=== PATIENT | male | born 1950 | race Caucasian/White ===

== ENCOUNTER 2018-08-26 09:47 | Emergency (ER) | payer MEDICARE ==
--- NOTE | 2018-08-26 10:37 | EDM.PDOC ---
ED HPI GENERAL MEDICAL PROBLEM - General Chief Complaint: Fever Stated Complaint: MEDICAL [facility]IA [facility] Time Seen by Provider: 08/26/18 10:10 Source of Information: Reports: Patient, EMS History Limitations: Reports: No Limitations - History of Present Illness INITIAL COMMENTS - FREE TEXT/NARRATIVE: 68-year-old male who is struggling with persistent weakness, intermittent fevers , who has been at the clinic twice this week and has been followed with labs and x-ray. His chest x-ray was normal, he had initial acute kidney injury levels last Wednesday but they were improved yesterday. He had a history of fevers but no fever in the clinic. His primary provider is following some abnormal thyroid levels, and also placed him on Zithromax for presumptive bronchitis. This morning he was running a fever and felt no better, possibly weaker so called EMS to be evaluated. He denies any pain. Denies any increased shortness of breath or cough. No nausea or vomiting. He arrives with a temperature of 102.1. Onset: Unknown/Unsure Associated Symptoms: Reports: Fever/Chills, Loss of Appetite, Malaise, Shortness of Breath (Chronic and stable), Weakness. Denies: Chest Pain, Cough Past Medical History Cardiovascular History: Reports: CAD Neurological History: Reports: CVA Endocrine/Metabolic History: Reports: Diabetes, Type II - Past Surgical History Cardiovascular Surgical History: Reports: Coronary Artery Bypass Social & Family History - Tobacco Use Smoking Status *Q: Never Smoker ED ROS GENERAL - Review of Systems Review Of Systems: See Below Constitutional: Reports: Fever, Chills, Malaise, Decreased Appetite HEENT: Denies: Throat Pain Respiratory: Reports: Shortness of Breath. Denies: Hemoptysis Cardiovascular: Denies: Chest Pain, Palpitations GI/Abdominal: Reports: Decreased Appetite. Denies: Abdominal Pain, Nausea, Vomiting : Reports: No Symptoms Neurological: Reports: Weakness. Denies: Headache Psychiatric: Reports: No Symptoms ED EXAM, GENERAL - Physical Exam Exam: See Below Exam Limited By: No Limitations General Appearance: Alert, No Apparent Distress Eye Exam: Bilateral Eye: EOMI (No jaundice) Throat/Mouth: Normal Inspection Head: Atraumatic Neck: Normal Inspection Respiratory/Chest: No Respiratory Distress, Lungs Clear Cardiovascular: Regular Rate, Rhythm. No: Tachycardia, Extra Beats GI/Abdominal: Soft, Non-Tender Neurological: Alert, Oriented Psychiatric: Normal Affect, Normal Mood Skin Exam: Warm, Dry Course - Vital Signs Last Recorded V/S: Last Vital Signs Temp 102.1 F H 08/26/18 10:09 Pulse 96 08/26/18 10:09 Resp 13 08/26/18 10:09 BP 136/70 08/26/18 10:09 Pulse Ox 92 L 08/26/18 10:09 - Orders/Labs/Meds Labs: Laboratory Tests 08/26/18 08/26/18 08/26/18 Range/Units 10:35 10:35 10:35 WBC 4.9 (4.5-11.0) K/uL RBC 4.00 L (4.30-5.90) M/uL Hgb 11.8 L (12.0-15.0) g/dL Hct 36.8 L (40.0-54.0) % MCV 92 (80-98) fL MCH 30 (27-31) pg MCHC 32 (32-36) % Plt Count 192 (150-400) K/uL Neut % (Auto) 65 (36-66) % Lymph % (Auto) 18 L (24-44) % [place] % (Auto) 16 H (2-6) % Eos % (Auto) 0 L (2-4) % Baso % (Auto) 1 (0-1) % Sodium 131 L (140-148) mmol/L Potassium 5.6 H (3.6-5.2) mmol/L Chloride 99 L (100-108) mmol/L Carbon Dioxide 23 (21-32) mmol/L Anion Gap 14.6 H (5.0-14.0) mmol/L BUN 36 H (7-18) mg/dL Creatinine 1.7 H (0.8-1.3) mg/dL Est Cr Clr Drug Dosing 39.68 mL/min Estimated GFR (MDRD) 40 L (>60) Glucose 229 H (74-106) mg/dL Calcium 8.6 (8.5-10.1) mg/dL Creatine Kinase 40 (39-308) U/L Meds: Medications Discontinued Medications Generic Name Dose Route Start Last Admin Trade Name Freq PRN Reason Stop Dose Admin Acetaminophen 1,000 mg 08/26/18 11:15 08/26/18 11:34 Tylenol Extra Strength PO 08/26/18 11:16 1,000 mg ONETIME ONE Administration - Re-Assessments/Exams Free Text/Narrative Re-Assessment/Exam: 08/26/18 10:37 Review of his clinic chart and discussed his case with his primary provider. CBC and BMP along with a CK were obtained. 08/26/18 11:15 Labs returned reassuring. White count is still normal and CK is normal. Patient was given 1000 mg of by mouth acetaminophen, and would like to try to go home and continue his oral antibiotic. He can follow-up with his primary care provider next week, or return anytime if he feels he is worsening despite treatment. Departure - Departure Time of Disposition: 12:42 Disposition: Home, Self-Care 01 Clinical Impression: Generalized weakness Fever Qualifiers: Fever type: unspecified Qualified Code(s): R50.9 - Fever, unspecified - Discharge Information Instructions: Fever, Adult, Weakness, [id number] Referrals: Blanche Leal PA-C [Primary Care Provider] - Forms: ED Department Discharge Care Plan Goals: Continue current medications and antibiotic as prescribed. Stay hydrated, increase activity and diet as tolerated and return anytime if you feel you are worsening or develop other concerns.
[2018-08-26] MEDS ORDERED: Acetaminophen 500 MG Tab PO ONE (11:15)
== END 2018-08-26 12:44 | disposition home or self-care (01) ==
LOC: JP.ED 09:47
DX: R53.1 Weakness (principal); R50.9 Fever, unspecified; E11.9 Type 2 diabetes mellitus without complications; I25.10 Atherosclerotic heart disease of native coronary artery without angina pectoris; Z86.73 Personal history of transient ischemic attack (TIA), and cerebral infarction without residual deficits
CPT/HCPCS: 36415; 80048; 82550; 85025; 99284; A9270

== ENCOUNTER 2019-03-14 12:40 | Emergency (ER) | payer MEDICARE ==
[2019-03-14] MEDS ORDERED: Sodium Chloride 0.9% 1,000 ML IV SCH (13:15)
--- NOTE | 2019-03-14 13:20 | EDM.PDOC ---
ED HPI GENERAL MEDICAL PROBLEM - General Chief Complaint: Neurological Problem Stated Complaint: MEDICAL VIA [facility] Time Seen by Provider: 03/14/19 13:07 Source of Information: Reports: Patient, EMS, RN Notes Reviewed History Limitations: Reports: No Limitations - History of Present Illness INITIAL COMMENTS - FREE TEXT/NARRATIVE: 68-year-old gentleman presents to the emergency department today complaint of left-sided weakness with slurred speech lasting about 1 hour in duration the event occurred at 1030 this morning approximately 3 hours prior to presentation to the emergency department. Does have a history of cerebrovascular accident as well as diabetes mellitus type 2 is on Plavix for blood thinner, known history of coronary artery disease. He had no residual deficits from his prior CVA which produced left-sided weakness. He has had TIAs in the past - Related Data Allergies Allergy/AdvReac Type Severity Reaction Status Date / Time succinylcholine Allergy Other Verified 03/14/19 12:49 Home Meds: Home Meds Allopurinol [Zyloprim] 200 mg PO DAILY 03/14/19 [History] Clopidogrel Bisulfate [Clopidogrel] 75 mg PO DAILY 03/14/19 [History] DULoxetine HCl [Duloxetine HCl] 30 mg PO DAILY 03/14/19 [History] Gabapentin [Neurontin] 1,200 mg PO BID 03/14/19 [History] Insulin Glarg,Human.Rec.Analog [Lantus Solostar] 40 units SQ BEDTIME 03/14/19 [ History] Isosorbide Mononitrate [Imdur] 30 mg PO DAILY 03/14/19 [History] Melatonin 5 mg PO BEDTIME 03/14/19 [History] Metoprolol Succinate 25 mg PO DAILY 03/14/19 [History] Nitroglycerin 0.4 mg SL Q5M PRN 03/14/19 [History] QUEtiapine Fumarate [Quetiapine Fumarate] 25 mg PO BEDTIME 03/14/19 [History] atorvaSTATin Calcium [Atorvastatin Calcium] 40 mg PO BEDTIME 03/14/19 [History] buPROPion HCl [buPROPion SR] 200 mg PO BEDTIME 03/14/19 [History] rOPINIRole [Requip] 4 mg PO DAILY 03/14/19 [History] traMADol HCl [Tramadol HCl] 50 mg PO Q8H PRN 03/14/19 [History] Past Medical History HEENT History: Reports: Cataract Cardiovascular History: Reports: CAD, High Cholesterol, Hypertension Gastrointestinal History: Reports: Diverticulosis Genitourinary History: Reports: Chronic Renal Insuffiency Musculoskeletal History: Reports: Arthritis Neurological History: Reports: CVA, TIA Endocrine/Metabolic History: Reports: Diabetes, Type II - Past Surgical History HEENT Surgical History: Reports: Cataract Surgery Cardiovascular Surgical History: Reports: Coronary Artery Bypass, Coronary Artery Stent GI Surgical History: Reports: Colon Neurological Surgical History: Reports: C-Spine, Lumbar Spine Social & Family History - Tobacco Use Smoking Status *Q: Never Smoker - Caffeine Use Caffeine Use: Reports: Soda - Recreational Drug Use Recreational Drug Use: No ED ROS GENERAL - Review of Systems Review Of Systems: See Below Constitutional: Reports: No Symptoms HEENT: Reports: No Symptoms Respiratory: Reports: No Symptoms Cardiovascular: Reports: No Symptoms GI/Abdominal: Reports: No Symptoms : Reports: No Symptoms Musculoskeletal: Reports: No Symptoms Skin: Reports: No Symptoms (This is) Neurological: Reports: Trouble Speaking, Weakness, Change in Speech ED EXAM, NEURO - Physical Exam Exam: See Below Text/Narrative:: Cranial nerves II test with pupillary light reflex 3 mm to 2 mm bilaterally, CN III test pupillary constriction, lid elevation and eye abduction bilaterally, CN IV downward movement of eyes bilaterally, CN V good jaw movement, CN lateral deviation of the eyes bilaterally to finger movement, CN VII symmetrical smile shows teeth without difficulty, CN VIII pass finger rub to ears bilaterally, CN IX adequate voice and tone, CN X adequate voice and tone no difficulty swallowing, CN XI can shrug shoulders without difficulty, CN XII can stick tongue out without difficulty, cranial nerves II to XII intact as tested, power is 5 out 5 in upper and lower extremities, patellar reflex, biceps reflex +2 can do finger to nose without difficulty, no dysdiadochokinesis , no difficulty with rapid alternating movements can do [id number] without difficulty, Romberg is negative, has adequate gait , no focal neurologic deficit Exam Limited By: No Limitations General Appearance: Alert, WD/WN, No Apparent Distress Respiratory/Chest: No Respiratory Distress, Lungs Clear, Normal Breath Sounds, No Accessory Muscle Use, Chest Non-Tender Cardiovascular: Regular Rate, Rhythm, No Murmur Course - Vital Signs Last Recorded V/S: Last Vital Signs Temp 97.5 F 03/14/19 12:57 Pulse 58 L 03/14/19 15:09 Resp 18 03/14/19 15:09 BP 117/62 03/14/19 15:09 Pulse Ox 92 L 03/14/19 15:09 - Orders/Labs/Meds Orders: Active Orders 24 hr Category Date Time Status EKG Documentation Completion [RC] ASDIRECTED Care 03/14/19 13:16 Active Peripheral IV Care [RC] . DIRECTED Care 03/14/19 13:15 Active Sodium Chloride 0.9% [Normal Saline] 1,000 ml Med 03/14/19 13:15 Active IV ASDIRECTED Sodium Chloride 0.9% [Saline Flush] Med 03/14/19 13:15 Active 10 ml FLUSH ASDIRECTED PRN Peripheral IV Insertion Adult [OM.PC] Urgent Oth 03/14/19 13:15 Ordered EKG 12 Lead [EK] Urgent Ther 03/14/19 13:15 Ordered Medication Orders Sodium Chloride (Normal Saline) 1,000 mls @ 500 mls/hr IV ASDIRECTED ORIANA Last Admin: 03/14/19 13:20 Dose: 500 mls/hr Sodium Chloride (Saline Flush) 10 ml FLUSH ASDIRECTED PRN PRN Reason: Keep Vein Open Last Admin: 03/14/19 14:11 Dose: 10 ml Admin: 03/14/19 13:24 Dose: 10 ml Labs: Laboratory Tests 03/14/19 03/14/19 Range/Units 13:26 13:26 WBC 8.9 (4.5-11.0) K/uL RBC 4.36 (4.30-5.90) M/uL Hgb 12.2 (12.0-15.0) g/dL Hct 39.4 L (40.0-54.0) % MCV 90 (80-98) fL MCH 28 (27-31) pg MCHC 31 L (32-36) % Plt Count 255 (150-400) K/uL Neut % (Auto) 67 H (36-66) % Lymph % (Auto) 24 (24-44) % [place] % (Auto) 7 H (2-6) % Eos % (Auto) 2 (2-4) % Baso % (Auto) 1 (0-1) % Sodium 137 L (140-148) mmol/L Potassium 4.9 (3.6-5.2) mmol/L Chloride 101 (100-108) mmol/L Carbon Dioxide 28 (21-32) mmol/L Anion Gap 12.9 (5.0-14.0) mmol/L BUN 20 H (7-18) mg/dL Creatinine 1.4 H (0.8-1.3) mg/dL Est Cr Clr Drug Dosing 46.56 mL/min Estimated GFR (MDRD) 50 L (>60) Glucose 145 H (74-106) mg/dL Calcium 8.3 L (8.5-10.1) mg/dL Total Bilirubin 0.4 (0.2-1.0) mg/dL AST 19 (15-37) U/L ALT 23 (12-78) U/L Alkaline Phosphatase 124 H (46-116) U/L Troponin I < 0.017 (0.000-0.056) ng/mL Total Protein 7.0 (6.4-8.2) g/dL Albumin 2.9 L (3.4-5.0) g/dL Globulin 4.1 H (2.3-3.5) g/dL Albumin/Globulin Ratio 0.7 L (1.2-2.2) Meds: Medications Generic Name Dose Route Start Last Admin Trade Name Freq PRN Reason Stop Dose Admin Sodium Chloride 1,000 mls @ 500 mls/hr 03/14/19 13:15 03/14/19 13:20 Normal Saline IV 500 mls/hr ASDIRECTED ORIANA Administration Sodium Chloride 10 ml 03/14/19 13:15 03/14/19 14:11 Saline Flush FLUSH 10 ml ASDIRECTED PRN Administration Keep Vein Open Discontinued Medications Generic Name Dose Route Start Last Admin Trade Name Freq PRN Reason Stop Dose Admin Sodium Chloride 100 mls @ 4 mls/sec 03/14/19 13:30 03/14/19 14:11 Normal Saline IV 03/14/19 13:31 4 mls/sec ASDIRECTED ORIANA Administration Iopamidol 100 ml 03/14/19 13:30 03/14/19 14:11 [id number] (76%) IV 03/14/19 13:31 100 ml . DIRECTED ORIANA Administration Sodium Chloride 10 ml 03/14/19 13:30 Saline Flush FLUSH 03/14/19 13:31 ONETIME ORIANA Departure - Departure Time of Disposition: 15:17 Disposition: Against Medical Advice 07 Condition: Undetermined Clinical Impression: TIA (transient ischemic attack) - Discharge Information Instructions: Transient Ischemic Attack Referrals: PCP,None [Primary Care Provider] - Forms: ED Department Discharge Additional Instructions: Please follow-up with neurology as soon as possible, call return to the emergency department with worsening of symptoms Sepsis Event Note - Evaluation Sepsis Screening Result: No Definite Risk - Focused Exam Vital Signs: Vital Signs Temp Pulse Resp BP Pulse Ox 03/14/19 15:09 58 L 18 117/62 92 L 03/14/19 14:15 69 18 134/62 94 L 03/14/19 12:57 97.5 F 67 15 144/68 H 94 L Date Exam was Performed: 03/14/19 Time Exam was Performed: 15:15 - My Orders Last 24 Hours: My Active Orders 03/14/19 13:15 Peripheral IV Care [RC] . DIRECTED Sodium Chloride 0.9% [Normal Saline] 1,000 ml IV ASDIRECTED Sodium Chloride 0.9% [Saline Flush] 10 ml FLUSH ASDIRECTED PRN Peripheral IV Insertion Adult [OM.PC] Urgent EKG 12 Lead [EK] Urgent 03/14/19 13:16 EKG Documentation Completion [RC] ASDIRECTED - Assessment/Plan Last 24 Hours: My Active Orders 03/14/19 13:15 Peripheral IV Care [RC] . DIRECTED Sodium Chloride 0.9% [Normal Saline] 1,000 ml IV ASDIRECTED Sodium Chloride 0.9% [Saline Flush] 10 ml FLUSH ASDIRECTED PRN Peripheral IV Insertion Adult [OM.PC] Urgent EKG 12 Lead [EK] Urgent 03/14/19 13:16 EKG Documentation Completion [RC] ASDIRECTED Plan: Assessment Acuity = acute Site and laterality = TIA complicated the patient with known history of cerebrovascular accident as well as diabetes mellitus type 2 and coronary artery disease Etiology = unknown Manifestations = none Location of injury = Home Lab values = CBC unremarkable creatinine elevated 1.4 consistent chronic renal failure stage G3 8, troponins negative CT scan and CTA showed no acute process Plan His ABCD squared score is 6 which puts him at high risk for a cerebrovascular accident I counseled him on this recommended transfer to [facility] consultation with neurology with further imaging studies which may include an MRI. He declined and left the emergency department AGAINST MEDICAL ADVICE This note was dictated using [employer] voice recognition software please call with any questions on syntax or grammar.
[2019-03-14] MEDS: Sodium Chloride 0.9% 10 ML Syringe FLUSH PRN ×2 (13:24→14:11)
[2019-03-14] MEDS ORDERED: Iopamidol 755 Mg/ML 100 ML Bottle IV SCH (13:30)
[2019-03-14] MEDS ORDERED: Sodium Chloride 0.9% 10 ML Syringe FLUSH SCH (13:30)
[2019-03-14] MEDS ORDERED: Sodium Chloride 0.9% 100 ML IV SCH (13:30)
--- NOTE | 2019-03-14 14:48 | CRLCT ---
Indication: Left-sided weakness, now resolved. Technique: CT of the head without contrast. Coronal and sagittal reformats. Bone and soft tissue windows. Comparison: No prior studies available for comparison at this institution. Findings: No acute intracranial hemorrhage or extra-axial collection. No evidence of acute cortical infarction. No mass effect or midline shift. Normal cerebral volume. The ventricles are normal in size, shape and contour. There is normal herndon and white matter differentiation. There is a linear focus of hyperattenuation in the inferior aspect of the right basal ganglia which probably represents a prominent perivascular vertebra space versus a chronic lacunar infarct. The orbital contents are normal. No calvarial fractures. No lytic or sclerotic osseous lesions within the calvarium or skull base. Scalp and other imaged soft tissue structures are normal. Mastoid air cells are clear. Paranasal sinuses are well aerated. Impression: 1. No evidence of acute intracranial abnormality. 2. There is a linear focus of hyperattenuation in the inferior aspect of the right basal ganglia which probably represents a prominent perivascular vertebra space versus a chronic lacunar infarct. 3. Carotid siphon atherosclerotic calcifications. Please note that all CT scans at this facility use dose modulation, iterative reconstruction, and/or weight-based dosing when appropriate to reduce radiation dose to as low as reasonably achievable. Dictated by Baljinder Soto MD @ Mar 14 2019 2:42PM Signed by Dr. Baljinder Soto @ Mar 14 2019 2:46PM
--- NOTE | 2019-03-14 14:53 | CRLCT ---
INDICATION: left sided weakness, now resolved TECHNIQUE: High resolution axial CT images acquired through the head following rapid intravenous administration of iodinated contrast. Multiplanar MIPS of cranial vasculature performed. COMPARISON: No prior studies available for comparison at this institution. FINDINGS: There is normal filling of the intracranial vasculature; i.e. there is no large vessel occlusion or significant intracranial stenosis. There is no cerebral aneurysm or evidence for vascular malformation. Carotid siphon atherosclerotic calcifications. There is complete opacification of the partially visualized left maxillary sinus. IMPRESSION: 1. Normal CT/CTA head. 2. Carotid siphon atherosclerotic calcifications. 3. There is complete opacification of the partially visualized left maxillary sinus. Please note that all CT scans at this facility use dose modulation, iterative reconstruction, and/or weight-based dosing when appropriate to reduce radiation dose to as low as reasonably achievable. Dictated by Baljinder Soto MD @ Mar 14 2019 2:46PM Signed by Dr. Baljinder Soto @ Mar 14 2019 2:51PM
== END 2019-03-14 15:33 | disposition left against medical advice (07) ==
LOC: JP.ED 12:40
DX: G45.9 Transient cerebral ischemic attack, unspecified (principal); E11.22 Type 2 diabetes mellitus with diabetic chronic kidney disease; I12.9 Hypertensive chronic kidney disease with stage 1 through stage 4 chronic kidney disease, or unspecified chronic kidney disease; N18.9 Chronic kidney disease, unspecified; I25.10 Atherosclerotic heart disease of native coronary artery without angina pectoris; I10 Essential (primary) hypertension; E78.00 Pure hypercholesterolemia, unspecified; Z79.4 Long term (current) use of insulin; Z79.899 Other long term (current) drug therapy; Z88.8 Allergy status to other drugs, medicaments and biological substances
CPT/HCPCS: 36415; 70450; 70496; 80053; 84484; 85025; 93005; 93010; 96360; 96361; 99285; J7030; J7050; Q9967

== ENCOUNTER 2019-08-05 03:38 | Emergency (ER) | payer MEDICARE ==
--- NOTE | 2019-08-05 04:26 | EDM.PDOC ---
ED HPI GENERAL MEDICAL PROBLEM - General Chief Complaint: Neurological Problem Stated Complaint: [facility] Time Seen by Provider: 08/05/19 04:00 Source of Information: Reports: Patient, EMS History Limitations: Reports: No Limitations - History of Present Illness INITIAL COMMENTS - FREE TEXT/NARRATIVE: 69-year-old male who has a long history of recurring intermittent left-sided weakness acting like TIAs or miniature strokes. He occasionally gets headaches with the episodes, not this current episode, and it is always on the left side. Tonight he went to bed at 9:00 feeling fine, when he woke up at 1 AM to try to go to the bathroom the left side was weak and he was unable to walk. He could not move his left arm. He waited for a while thinking it would resolve like it usually does but when it was not improving he called the ambulance. He is now markedly improved. [place] stroke scale in route was negative. He was in the ER several months ago with the same thing, CT angiogram and CT of the head was negative and we attempted to arrange transfer to [place] but he refused and went home AMA. He did not want to go because they "never find anything", he has had MRIs, neurosurgery consults, he has had thrombolytics twice. Both carotid arteries have been cleared in the past. He has had echocardiograms. He is on Plavix. He has had many episodes at home that resolved within 1/2- hour or so. It has never occurred on the right side. He is a non-smoker and does not drink alcohol. Onset: Unknown/Unsure (Symptoms started sometime after 9 PM, 7 hours ago) Location: Reports: Upper Extremity, Left, Lower Extremity, Left Quality: Reports: Other (Weakness, paresthesias) Associated Symptoms: Denies: Confusion, Fever/Chills, Headaches, Loss of Appetite, Malaise, Nausea/Vomiting, Shortness of Breath Treatments [employer]: Reports: IV/IO Left Hip Pain Score (Numeric/FACES): 8 - Related Data Allergies Allergy/AdvReac Type Severity Reaction Status Date / Time succinylcholine Allergy Other Verified 08/05/19 03:55 Home Meds: Home Meds Clopidogrel Bisulfate [Clopidogrel] 75 mg PO DAILY 03/14/19 [History] Gabapentin [Neurontin] 1,200 mg PO BID 03/14/19 [History] Insulin Glarg,Human.Rec.Analog [Lantus Solostar] 28 units SQ BEDTIME 03/14/19 [ History] Isosorbide Mononitrate [Imdur] 30 mg PO DAILY 03/14/19 [History] Melatonin 10 mg PO BEDTIME 03/14/19 [History] Metoprolol Succinate 25 mg PO DAILY 03/14/19 [History] Nitroglycerin 0.4 mg SL Q5M PRN 03/14/19 [History] QUEtiapine Fumarate [Quetiapine Fumarate] 25 mg PO BEDTIME 03/14/19 [History] allopurinoL [Zyloprim] 200 mg PO DAILY 03/14/19 [History] atorvaSTATin Calcium [Atorvastatin Calcium] 40 mg PO BEDTIME 03/14/19 [History] rOPINIRole [Requip] 2 mg PO DAILY 03/14/19 [History] traMADol HCl [Tramadol HCl] 50 mg PO Q6H PRN 03/14/19 [History] Hydrocodone/Acetaminophen [Hydrocodon-Acetaminophen 5-325] 0.5 each PO Q4HR PRN 08/05/19 [History] metFORMIN HCl [Metformin HCl ER] 500 mg PO DAILY 08/05/19 [History] Past Medical History HEENT History: Reports: Cataract Cardiovascular History: Reports: CAD, High Cholesterol, Hypertension Gastrointestinal History: Reports: Diverticulosis Genitourinary History: Reports: Chronic Renal Insuffiency Musculoskeletal History: Reports: Arthritis Neurological History: Reports: CVA, TIA Endocrine/Metabolic History: Reports: Diabetes, Type II - Infectious Disease History Infectious Disease History: Reports: Chicken Pox - Past Surgical History HEENT Surgical History: Reports: Cataract Surgery Cardiovascular Surgical History: Reports: Coronary Artery Bypass, Coronary Artery Stent GI Surgical History: Reports: Colon Neurological Surgical History: Reports: C-Spine, Lumbar Spine Social & Family History - Family History Family Medical History: Unobtainable - Tobacco Use Smoking Status *Q: Never Smoker Second Hand Smoke Exposure: No - Caffeine Use Caffeine Use: Reports: Coffee - Recreational Drug Use Recreational Drug Use: No ED ROS GENERAL - Review of Systems Review Of Systems: See Below Constitutional: Denies: Fever, Chills, Malaise HEENT: Denies: Vision Change Respiratory: Denies: Shortness of Breath, Cough Cardiovascular: Denies: Chest Pain, Palpitations GI/Abdominal: Denies: Abdominal Pain, Nausea, Vomiting Musculoskeletal: Reports: Other (Significant left hip pain, he needs surgery but it was temporarily postponed due to coronavirus) Neurological: Reports: Dizziness, Numbness (Left arm and left leg), Weakness ( Left arm and left leg). Denies: Confusion, Headache Psychiatric: Reports: No Symptoms ED EXAM, NEURO - Physical Exam Exam: See Below Exam Limited By: No Limitations General Appearance: Alert, No Apparent Distress Eye Exam: Bilateral Eye: Normal Inspection (EOMs are intact) Head Exam: Atraumatic, Normocephalic Neck: Supple, Non-Tender. No: Carotid Bruit Respiratory/Chest: No Respiratory Distress, Lungs Clear Cardiovascular: Regular Rate, Rhythm. No: Extra Beats GI/Abdominal: Non-Tender Neurological: Alert, Normal Mood/Affect, Oriented x 3, Difficulty Walking (Left leg feels uncoordinated and weak when trying to step forward, also difficult to hold against gravity while lying supine. No other neurologic weakness demonstrated, upper extremities are symmetric and facial muscles are symmetric) Extremities: No Pedal Edema Psychiatric: Normal Affect, Normal Mood Skin Exam: Warm, Dry Course - Vital Signs Last Recorded V/S: Last Vital Signs Temp 96.6 F L 08/05/19 03:44 Pulse 75 08/05/19 05:20 Resp 13 08/05/19 05:20 BP 150/88 H 08/05/19 05:20 Pulse Ox 97 08/05/19 05:20 - Orders/Labs/Meds Labs: Laboratory Tests 08/05/19 08/05/19 Range/Units 04:30 04:30 WBC 7.4 (4.5-11.0) K/uL RBC 4.24 L (4.30-5.90) M/uL Hgb 12.2 (12.0-15.0) g/dL Hct 37.7 L (40.0-54.0) % MCV 89 (80-98) fL MCH 29 (27-31) pg MCHC 32 (32-36) % Plt Count 259 (150-400) K/uL Neut % (Auto) 65 (36-66) % Lymph % (Auto) 24 (24-44) % [place] % (Auto) 9 H (2-6) % Eos % (Auto) 2 (2-4) % Baso % (Auto) 1 (0-1) % Sodium 140 (140-148) mmol/L Potassium 4.4 (3.6-5.2) mmol/L Chloride 104 (100-108) mmol/L Carbon Dioxide 28 (21-32) mmol/L Anion Gap 8.1 (5.0-14.0) mmol/L BUN 31 H D (7-18) mg/dL Creatinine 1.7 H (0.8-1.3) mg/dL Est Cr Clr Drug Dosing 39.12 mL/min Estimated GFR (MDRD) 40 L (>60) Glucose 186 H (74-106) mg/dL Calcium 8.4 L (8.5-10.1) mg/dL Total Bilirubin 0.5 (0.2-1.0) mg/dL AST 13 L (15-37) U/L ALT 21 (12-78) U/L Alkaline Phosphatase 108 (46-116) U/L Total Protein 6.5 (6.4-8.2) g/dL Albumin 2.7 L (3.4-5.0) g/dL Globulin 3.8 H (2.3-3.5) g/dL Albumin/Globulin Ratio 0.7 L (1.2-2.2) - Re-Assessments/Exams Free Text/Narrative Re-Assessment/Exam: 08/05/19 04:27 Because he still has lingering symptoms in the left lower extremity, CT the head without contrast will be obtained. His blood glucose by EMS was 180, CBC and CMP will be drawn. Patient does not want transfer to neurology as this is been done several times in the past and he is not interested. 08/05/19 05:[address] is negative, labs again are reassuring. He continues to have a mild amount of renal insufficiency but it is at baseline. He feels his strength is also close to baseline. I think he is having some type of recurring vascular spasm-like migraine variant rather than TIA or stroke and this was discussed at length with the patient. He again is refusing any referral at this time. I did tell him to contact Blanche Leal, his primary provider, and discussed the possibility of a neurology referral to assess the possibility of these being migrainous. Departure - Departure Time of Disposition: 06:42 Disposition: Home, Self-Care 01 Clinical Impression: Left-sided weakness - Discharge Information Instructions: Recurrent Migraine Headache Referrals: PCP,None [Primary Care Provider] - Forms: ED Department Discharge Care Plan Goals: Continue with your current medications, and discussed the possibility of these being vascular spasm or migrainous type syndromes with occasional headaches with your primary provider or neurology. Sepsis Event Note - Evaluation Sepsis Screening Result: No Definite Risk - Focused Exam Date Exam was Performed: 08/05/19 Time Exam was Performed: 22:24
--- NOTE | 2019-08-05 05:05 | CRLCT ---
INDICATION: Left sided weakness TECHNIQUE: CT Head without i.v. contrast. COMPARISON: 03/14/2019 FINDINGS: CSF space: Unremarkable for age. Brain: No evidence of mass, acute infarction or hemorrhage is seen. No mass-effect or midline shift is seen. Mild diffuse cortical atrophy is noted. The brain parenchyma is otherwise normal in appearance with preservation of the dykes-white matter junction. Calvarium: The visualized paranasal sinuses are well aerated. The mastoid air cells are clear. The visualized orbits are grossly unremarkable. The calvarium is unremarkable in appearance with no fractures identified. IMPRESSION: 1. No evidence of acute infarction, intracranial hemorrhage, or mass-effect seen. The findings were discussed with Dr. Traylor at 5:04 AM. Please note that all CT scans at this facility use dose modulation, iterative reconstruction, and/or weight-based dosing when appropriate to reduce radiation dose to as low as reasonably achievable. Dictated by: Ryan Milton MD @ 08/05/2019 05:04:22 (Electronically Signed)
== END 2019-08-05 06:46 | disposition home or self-care (01) ==
LOC: JP.ED 03:38
DX: M62.81 Muscle weakness (generalized) (principal); I25.10 Atherosclerotic heart disease of native coronary artery without angina pectoris; E78.00 Pure hypercholesterolemia, unspecified; I12.9 Hypertensive chronic kidney disease with stage 1 through stage 4 chronic kidney disease, or unspecified chronic kidney disease; N18.9 Chronic kidney disease, unspecified; M19.90 Unspecified osteoarthritis, unspecified site; E11.9 Type 2 diabetes mellitus without complications; Z79.4 Long term (current) use of insulin; Z79.899 Other long term (current) drug therapy; Z86.73 Personal history of transient ischemic attack (TIA), and cerebral infarction without residual deficits
CPT/HCPCS: 36415; 70450; 80053; 85025; 99283; 99285-25

== ENCOUNTER 2021-12-11 18:34 | Emergency (ER) | payer MEDICARE ==
[2021-12-11] MEDS ORDERED: Bacitracin Oint 1 GM U/D Packet TOP ONE (18:36)
[2021-12-11] MEDS ORDERED: Diphtheria,Pertussis(Acell),Tetanus Vaccine 0.5 ML Syringe IM ONE (19:14)
[2021-12-11 19:16] LABS: ESTIMATED GFR 35 mL/min (>60)
== END 2021-12-11 19:59 | disposition home or self-care (01) ==
LOC: JP.ED 18:34
DX: S01.81XA Laceration without foreign body of other part of head, initial encounter (principal); I25.10 Atherosclerotic heart disease of native coronary artery without angina pectoris; I10 Essential (primary) hypertension; E11.9 Type 2 diabetes mellitus without complications; Z88.8 Allergy status to other drugs, medicaments and biological substances; Z79.899 Other long term (current) drug therapy; Z79.82 Long term (current) use of aspirin; Z23 Encounter for immunization; W01.198A Fall on same level from slipping, tripping and stumbling with subsequent striking against other object, initial encounter
CPT/HCPCS: 12013; 36415; 70450; 80053; 85025; 85610; 85730; 90471; 90715; 99284-25

== ENCOUNTER 2023-01-01 12:50 | Emergency (ER) | payer MEDICARE ==
[2023-01-01] MEDS ORDERED: Isosorbide Mononitrate 30 MG Tab.ER PO ONE (13:22)
[2023-01-01 13:33] LABS: HEMATOCRIT 37.7 % (38.4-49.7); HEMOGLOBIN 12.3 g/dL (12.9-16.9); MEAN CORPUSCULAR HEMOGLOBIN 29.7 pg (31.6-35.5); MEAN CORPUSCULAR HGB CONC 32.6 g/dL (31.6-35.5); MEAN CORPUSCULAR VOLUME 91.1 fL (81.4-99.0); RED BLOOD CELL COUNT 4.14 M/uL (4.14-5.76); WHITE BLOOD CELL COUNT,WBC 7.6 K/uL (3.2-11.0)
[2023-01-01 13:56] LABS: PROTHROMBIN TIME 10.4 sec (9.2-10.6)
[2023-01-01 14:02] LABS: A/G RATIO 0.9 (1.2-2.2); ALANINE AMINOTRANSFERASE,ALT 26 U/L (12-78); ALBUMIN 3.2 g/dL (3.4-5.0); ALKALINE PHOSPHATASE 99 U/L (46-116); ANION GAP 11.9 mmol/L (5.0-14.0); ASPARTATE AMNIOTRANSFERASE,AST 22 U/L (15-37); BILIRUBIN TOTAL 0.4 mg/dL (0.2-1.0); BLOOD UREA NITROGEN,BUN 33 mg/dL (7-18); CALCIUM 8.2 mg/dL (8.5-10.1); CARBON DIOXIDE,CO2 26 mmol/L (21-32); CHLORIDE,CL 105 mmol/L (100-108); CREATININE 2.3 mg/dL (0.8-1.3); EST CRCL DRUG DOSING (CG) 27.67 mL/min; ESTIMATED GFR 29 mL/min (>60); GLUCOSE RANDOM 136 mg/dL (74-106); POTASSIUM,K 4.9 mmol/L (3.6-5.2); PROTEIN TOTAL,TP 6.7 g/dL (6.4-8.2); SODIUM,NA 138 mmol/L (140-148)
== END 2023-01-01 14:50 | disposition home or self-care (01) ==
LOC: JP.ED 12:50
DX: G45.9 Transient cerebral ischemic attack, unspecified (principal); I10 Essential (primary) hypertension; I25.10 Atherosclerotic heart disease of native coronary artery without angina pectoris; E78.00 Pure hypercholesterolemia, unspecified; E11.9 Type 2 diabetes mellitus without complications; M19.90 Unspecified osteoarthritis, unspecified site; Z79.82 Long term (current) use of aspirin; Z79.02 Long term (current) use of antithrombotics/antiplatelets; Z79.899 Other long term (current) drug therapy; Z95.5 Presence of coronary angioplasty implant and graft; Z88.8 Allergy status to other drugs, medicaments and biological substances
CPT/HCPCS: 36415; 80053; 84484; 85027; 85610; 93005; 93010; 99283; 99285; A9270-GY

== ENCOUNTER 2023-10-22 10:37 | Emergency (ER) | payer MEDICARE | END 2023-10-22 15:44 | disposition home or self-care (01) | LOC: JP.ED 10:37 | DX: S22.31XA Fracture of one rib, right side, initial encounter for closed fracture (principal); I12.9 Hypertensive chronic kidney disease with stage 1 through stage 4 chronic kidney disease, or unspecified chronic kidney disease; N18.9 Chronic kidney disease, unspecified; E11.22 Type 2 diabetes mellitus with diabetic chronic kidney disease; E78.00 Pure hypercholesterolemia, unspecified; M19.90 Unspecified osteoarthritis, unspecified site; Z79.4 Long term (current) use of insulin; Z79.899 Other long term (current) drug therapy; Z90.49 Acquired absence of other specified parts of digestive tract; Z79.82 Long term (current) use of aspirin; Z88.8 Allergy status to other drugs, medicaments and biological substances | CPT/HCPCS: 71101-RT; 71250; 99284 ==

== ENCOUNTER 2024-01-04 11:22 | Emergency (ER) | payer MEDICARE ==
[2024-01-04 12:23] LABS: BASOPHILS ABSOLUTE AUTO 0.06 K/uL (0.00-0.10); BASOPHILS PERCENT AUTO 1.1 % (0.1-1.3); EOSINOPHILS ABSOLUTE AUTO 0.16 K/uL (0.00-0.40); EOSINOPHILS PERCENT AUTO 2.9 % (0.0-5.4); HEMATOCRIT 30.4 % (38.4-49.7); HEMOGLOBIN 10.1 g/dL (12.9-16.9); IMMATURE GRAN ABSOLUTE AUTO 0.02 K/uL (0.00-0.23); IMMATURE GRAN PERCENT AUTO 0.4 % (0.0-0.7); LYMPHOCYTES ABSOLUTE AUTO 1.33 K/uL (0.8-3.3); LYMPHOCYTES PERCENT AUTO 24.4 % (11.4-47.7); MEAN CORPUSCULAR HEMOGLOBIN 30.3 pg (31.6-35.5); MEAN CORPUSCULAR HGB CONC 33.2 g/dL (31.6-35.5); MEAN CORPUSCULAR VOLUME 91.3 fL (81.4-99.0); MONOCYTES ABSOLUTE AUTO 0.36 K/uL (0.20-0.90); MONOCYTES PERCENT AUTO 6.6 % (3.3-12.6); NEUTROPHILS ABSOLUTE AUTO 3.51 K/uL (1.0-7.6); NEUTROPHILS PERCENT AUTO 64.6 % (40.0-78.1); PLATELET COUNT,PLT 157 K/uL (130-375); RED BLOOD CELL COUNT 3.33 M/uL (4.14-5.76); WHITE BLOOD CELL COUNT,WBC 5.4 K/uL (3.2-11.0)
[2024-01-04 12:38] LABS: CALCIUM 8.3 mg/dL (8.5-10.1); EST CRCL DRUG DOSING (CG) 12.06 mL/min; POTASSIUM,K 5.8 mmol/L (3.6-5.2)
[2024-01-04 12:45] LABS: ANION GAP 13.8 mmol/L (5.0-14.0)
[2024-01-04 12:47] LABS: CREATININE 4.5 mg/dL (0.8-1.3)
[2024-01-04 13:45] LABS: APPEARANCE,URINE CLEAR (CLEAR); BILIRUBIN,URINE NEGATIVE (NEGATIVE); COLOR,URINE YELLOW (YELLOW); GLUCOSE,URINE NEGATIVE (NEGATIVE); KETONES,URINE NEGATIVE (NEGATIVE); LEUKOCYTE ESTERASE,URINE NEGATIVE (NEGATIVE); NITRITE,URINE NEGATIVE (NEGATIVE); OCCULT BLOOD,URINE MODERATE (NEGATIVE); PH,URINE 6.5 (5.0-8.0); PROTEIN,URINE 100 mg/dL (NEGATIVE); UROBILINOGEN,URINE 0.2 EU/dL (0.2-1.0)
[2024-01-04 14:00] LABS: AMORPHOUS SEDIMENT,URINE NOT SEEN; BACTERIA,URINE FEW; EPITHELIAL CELLS,URINE RARE; MUCUS,URINE RARE; RBC,URINE 0-5 (0-5); WBC,URINE NOT SEEN (0-5)
== END 2024-01-04 14:35 | disposition home or self-care (01) ==
LOC: JP.ED 11:22
DX: S22.41XA Multiple fractures of ribs, right side, initial encounter for closed fracture (principal); I12.9 Hypertensive chronic kidney disease with stage 1 through stage 4 chronic kidney disease, or unspecified chronic kidney disease; N18.30 Chronic kidney disease, stage 3 unspecified; I25.10 Atherosclerotic heart disease of native coronary artery without angina pectoris; I25.2 Old myocardial infarction; E11.22 Type 2 diabetes mellitus with diabetic chronic kidney disease; E11.40 Type 2 diabetes mellitus with diabetic neuropathy, unspecified; E78.00 Pure hypercholesterolemia, unspecified; Z90.49 Acquired absence of other specified parts of digestive tract; Z95.1 Presence of aortocoronary bypass graft; Z95.5 Presence of coronary angioplasty implant and graft; Z79.4 Long term (current) use of insulin; Z79.899 Other long term (current) drug therapy; Z79.82 Long term (current) use of aspirin; Z88.8 Allergy status to other drugs, medicaments and biological substances; R29.6 Repeated falls; W19.XXXA Unspecified fall, initial encounter
CPT/HCPCS: 36415; 71250; 71250-26; 80048; 81001; 85025; 99284

== ENCOUNTER 2024-08-20 16:27 | Emergency (ER) | payer MEDICARE ==
[2024-08-20 16:46] LABS: BASOPHILS ABSOLUTE AUTO 0.05 K/uL (0.00-0.10); BASOPHILS PERCENT AUTO 0.7 % (0.1-1.3); EOSINOPHILS ABSOLUTE AUTO 0.12 K/uL (0.00-0.40); EOSINOPHILS PERCENT AUTO 1.6 % (0.0-5.4); HEMATOCRIT 28.5 % (38.4-49.7); HEMOGLOBIN 9.1 g/dL (12.9-16.9); IMMATURE GRAN ABSOLUTE AUTO 0.02 K/uL (0.00-0.23); IMMATURE GRAN PERCENT AUTO 0.3 % (0.0-0.7); LYMPHOCYTES ABSOLUTE AUTO 1.29 K/uL (0.8-3.3); LYMPHOCYTES PERCENT AUTO 17.2 % (11.4-47.7); MEAN CORPUSCULAR HGB CONC 31.9 g/dL (31.6-35.5); MEAN CORPUSCULAR VOLUME 96.9 fL (81.4-99.0); MONOCYTES ABSOLUTE AUTO 0.66 K/uL (0.20-0.90); MONOCYTES PERCENT AUTO 8.8 % (3.3-12.6); NEUTROPHILS ABSOLUTE AUTO 5.34 K/uL (1.0-7.6); NEUTROPHILS PERCENT AUTO 71.4 % (40.0-78.1); PLATELET COUNT,PLT 163 K/uL (130-375); RED BLOOD CELL COUNT 2.94 M/uL (4.14-5.76); WHITE BLOOD CELL COUNT,WBC 7.5 K/uL (3.2-11.0)
[2024-08-20 17:15] LABS: A/G RATIO 0.7 (1.2-2.2); ALANINE AMINOTRANSFERASE,ALT 19 U/L (12-78); ALBUMIN 2.7 g/dL (3.4-5.0); ALKALINE PHOSPHATASE 97 U/L (46-116); ASPARTATE AMNIOTRANSFERASE,AST 18 U/L (15-37); BILIRUBIN TOTAL 0.3 mg/dL (0.2-1.0); CALCIUM 8.6 mg/dL (8.5-10.1); CARBON DIOXIDE,CO2 22 mmol/L (21-32); CHLORIDE,CL 108 mmol/L (100-108); EST CRCL DRUG DOSING (CG) 7.03 mL/min; ESTIMATED GFR 7 mL/min (>60); GLUCOSE RANDOM 95 mg/dL (74-106); MAGNESIUM 1.8 mg/dL (1.8-2.4); PRO B-TYPE NATRIUR PEPT,BNPPRO 4470 pg/mL (5-450); PROTEIN TOTAL,TP 6.4 g/dL (6.4-8.2); SODIUM,NA 140 mmol/L (140-148); TSH ULTRASENSITIVE 4.983 uIU/mL (0.358-3.740)
[2024-08-20 17:22] LABS: ANION GAP 16.2 mmol/L (5.0-14.0); BLOOD UREA NITROGEN,BUN 88 mg/dL (7-18); POTASSIUM,K 6.2 mmol/L (3.6-5.2)
[2024-08-20 17:23] LABS: CREATININE 7.6 mg/dL (0.8-1.3)
[2024-08-20] MEDS: Sodium Chloride 0.9% 1,000 ML IV ONE (17:25)
[2024-08-20 17:26] LABS: APPEARANCE,URINE CLEAR (CLEAR); BILIRUBIN,URINE NEGATIVE (NEGATIVE); COLOR,URINE YELLOW (YELLOW); GLUCOSE,URINE NEGATIVE (NEGATIVE); KETONES,URINE NEGATIVE (NEGATIVE); LEUKOCYTE ESTERASE,URINE NEGATIVE (NEGATIVE); NITRITE,URINE NEGATIVE (NEGATIVE); OCCULT BLOOD,URINE MODERATE (NEGATIVE); PROTEIN,URINE 100 mg/dL (NEGATIVE); UROBILINOGEN,URINE 0.2 EU/dL (0.2-1.0)
[2024-08-20 17:33] LABS: WBC,URINE 0-5 (0-5)
[2024-08-20 17:34] LABS: AMORPHOUS SEDIMENT,URINE NOT SEEN; BACTERIA,URINE FEW; EPITHELIAL CELLS,URINE FEW; MUCUS,URINE NOT SEEN
[2024-08-20] MEDS: Sodium Bicarbonate 8.4% 50 MEQ/50 ML Syringe IVPUSH ONE (18:36)
== END 2024-08-20 22:09 ==
LOC: JP.ED 16:27
DX: E86.0 Dehydration (principal); N18.5 Chronic kidney disease, stage 5; I12.0 Hypertensive chronic kidney disease with stage 5 chronic kidney disease or end stage renal disease; E11.22 Type 2 diabetes mellitus with diabetic chronic kidney disease; N17.9 Acute kidney failure, unspecified; E87.5 Hyperkalemia; E78.00 Pure hypercholesterolemia, unspecified; Z90.49 Acquired absence of other specified parts of digestive tract; Z79.899 Other long term (current) drug therapy; Z79.4 Long term (current) use of insulin; Z79.82 Long term (current) use of aspirin; Z88.8 Allergy status to other drugs, medicaments and biological substances
CPT/HCPCS: 36415; 70450; 71045; 80053; 80307; 81001; 83605; 83735; 83880; 84443; 84484; 85025; 93005; 96361; 96374; 99285; J7030